=== PATIENT | female | born 1950 | race Caucasian/White ===

== ENCOUNTER 2018-10-10 09:55 | Day surgery (SDC) | payer MEDICARE, BC ==
[2018-10-08 11:51] VITALS: BMI 35.4
[~2018-10-10 09:55] MED LIST: LACTATED RINGERS 1,000 ML IV SCH; LIDOCAINE 1% 20 ML VIAL (10MG/ML) FOR IV START INTRADERMA PRN
[2018-10-10 10:27] VITALS: TEMP 99.1
[2018-10-10] MEDS ORDERED: PROPOFOL 10 MG/ML 20 ML VIAL IV ONE (11:26)
--- NOTE | 2018-10-10 11:28 | P.GSHP ---
History of Present Illness H&P Date: 10/10/18 Chief Complaint: Iron Deficiency anemia Patient today for upper and lower endoscopy. She has not had a colonoscopy before. Recently was being worked up and found to have a hemoglobin of 7.7. Iron studies show iron deficiency. Here for upper and lower endoscopy. Denies rectal bleeding. No melanotic stools. No abdominal pain. Past Medical History Past Medical History: GERD/Reflux, Hypertension, Osteoarthritis (OA), Renal Disease Additional Past Medical History / Comment(s): SHORT OF BREATH,ANEMIA, History of Any Multi-Drug Resistant Organisms: None Reported Past Surgical History: Appendectomy, Tonsillectomy Additional Past Surgical History / Comment(s): LEFT EYE SURGERY , DENTAL IMPLANTS Past Anesthesia/Blood Transfusion Reactions: No Reported Reaction Smoking Status: Current every day smoker - Past Family History Brother(s) Family Medical History: Cancer Additional Family Medical History / Comment(s): LUNG CANCER Medications and Allergies Home Medications Medication Instructions Recorded Confirmed Type Aspirin EC [Ecotrin] 325 mg PO DAILY 10/08/18 10/08/18 History Furosemide [Lasix] 20 mg PO DAILY 10/08/18 10/10/18 History Hydrochlorothiazide [Hydrodiuril] 25 mg PO DAILY PRN 10/08/18 10/10/18 History Iron 18 mg PO DAILY 10/08/18 10/08/18 History Losartan Potassium [Cozaar] 25 mg PO DAILY 10/08/18 10/10/18 History Multivitamins, Thera [Multivitamin 1 tab PO DAILY 10/08/18 10/08/18 History (formulary)] Omeprazole Magnesium [PriLOSEC OTC] 20 mg PO DAILY 10/08/18 10/10/18 History Allergies Allergy/AdvReac Type Severity Reaction Status Date / Time No Known Allergies Allergy Verified 10/10/18 10:14 Surgical - Exam Vital Signs Temp Pulse Resp BP Pulse Ox 99.1 F 80 16 135/63 95 10/10/18 10:17 10/10/18 10:17 10/10/18 10:17 10/10/18 10:17 10/10/18 10:17 Physical exam: General: Well-developed, well-nourished HEENT: Normocephalic, sclerae nonicteric Abdomen: Nontender, nondistended Extremities: No edema Neuro: Alert and oriented Assessment and Plan (1) Iron deficiency anemia Narrative/Plan: Will proceed with upper and lower endoscopy at this time. Current Visit: Yes Status: Acute Code(s): D50.9 - IRON DEFICIENCY ANEMIA, UNSPECIFIED SNOMED Code(s): 05863621
--- NOTE | 2018-10-10 11:45 | P.PCN ---
Date of Procedure: 10/10/18 Procedure(s) Performed: PREOPERATIVE DIAGNOSIS: Iron deficiency anemia POSTOPERATIVE DIAGNOSIS: Gastritis, poor colonic prep PROCEDURE: 1. EGD with biopsy 2. Attempted colonoscopy ANESTHESIA: MAC SURGEON: Vazquez Wellington M.D. SPECIMENS: Antrum ENDOSCOPIC PROCEDURE: The patient was on the endoscopy table in the left decubitus position. The Olympus gastroscope was inserted into the oropharynx and passed under direct visualization to the region of the third portion of the duodenum. From that point the scope was slowly withdrawn inspecting all surfaces carefully. There were no neoplastic inflammatory or polypoid lesions throughout the duodenum. The pylorus revealed inflammatory changes without ulc eration. The stomach was carefully inspected. There was mild gastritis present. A biopsy of the antrum took place to rule out H. pylori. Retroflexion revealed a normal hiatus. The esophagus was then carefully examined. There were no neoplastic inflammatory or polypoid lesions throughout the visualized esophagus. The patient was kept on the endoscopy table in the left decubitus position. The Olympus colonoscope was inserted into the anus and passed under direct visualization to the region of the descending colon. The patient's prep unfortunate was quite poor with both liquid and solid stool. I could not evaluate the mucosal surfaces sufficiently. The visualized descending sigmoid and rectum appeared normal. Digital rectal examination was normal. Unfortunately again given the patient's poor prep no definitive statements can be made regarding the possibility of colonic bleeding. The patient was taken to the recovery room in stable condition per anesthesia guidelines. RECOMMENDATIONS: Await biopsy results. Antiacid therapy. Will require reprep and reattempt at colonoscopy.
[2018-10-10 11:49] VITALS: RESP 18
[2018-10-10 12:21] VITALS: BP 148/67; PULSE 67
== END 2018-10-10 12:39 | disposition home or self-care (01) ==
LOC: ORWHC2ENDO 09:55
PROVIDERS: ATTEND Surgery
DX: D50.9 Iron deficiency anemia, unspecified (principal); K29.50 Unspecified chronic gastritis without bleeding; K21.9 Gastro-esophageal reflux disease without esophagitis; I10 Essential (primary) hypertension; M19.90 Unspecified osteoarthritis, unspecified site; F17.210 Nicotine dependence, cigarettes, uncomplicated; Z79.82 Long term (current) use of aspirin; Z79.899 Other long term (current) drug therapy; Z97.2 Presence of dental prosthetic device (complete) (partial)
CPT/HCPCS: 43239; 45378; 88305; 88342; J2704

== ENCOUNTER → 2018-10-15 | Outpatient (CLI) | payer MEDICARE, BC ==
[2018-10-15 17:07] LABS: Anisocytosis Slight; Basophils # (A) 0.1 k/uL (0-0.2); Basophils % (A) 1 %; Eosinophils # (A) 0.2 k/uL (0-0.7); Eosinophils % (A) 2 %; HCT 28.5 % (34.0-46.0); HGB 7.9 gm/dL (11.4-16.0); Hypochromasia Marked; Lymphocytes # (A) 2.4 k/uL (1.0-4.8); Lymphocytes % (A) 35 %; MCH 20.5 pg (25.0-35.0); MCHC 27.6 g/dL (31.0-37.0); MCV 74.3 fL (80.0-100.0); Mean Platelet Volume 7.5; Microcytosis Moderate; Monocytes # (A) 0.6 k/uL (0-1.0); Monocytes % (A) 9 %; Neutrophils # (A) 3.4 k/uL (1.3-7.7); Neutrophils % (A) 50 %; Platelet Count 328 k/uL (150-450); Poikilocytosis Slight; RBC 3.84 m/uL (3.80-5.40); RDW 19.7 % (11.5-15.5); WBC 6.9 k/uL (3.8-10.6)
== END | disposition home or self-care (01) ==
LOC: LABWHC1 15:51
PROVIDERS: ATTEND Internal Medicine Critical Care Medicine
DX: D64.9 Anemia, unspecified (principal)
CPT/HCPCS: 36415; 85025

== ENCOUNTER → 2018-11-14 | Outpatient (CLI) | payer MEDICARE, BC ==
[2018-11-14 13:50] LABS: Anisocytosis Slight; Basophils # (A) 0.1 k/uL (0-0.2); Basophils % (A) 1 %; Eosinophils # (A) 0.2 k/uL (0-0.7); Eosinophils % (A) 2 %; HCT 27.3 % (34.0-46.0); HGB 7.7 gm/dL (11.4-16.0); Hypochromasia Marked; Lymphocytes # (A) 2.1 k/uL (1.0-4.8); Lymphocytes % (A) 23 %; MCH 21.5 pg (25.0-35.0); MCHC 28.4 g/dL (31.0-37.0); MCV 75.7 fL (80.0-100.0); Microcytosis Moderate; Monocytes # (A) 0.4 k/uL (0-1.0); Monocytes % (A) 5 %; Neutrophils # (A) 6.1 k/uL (1.3-7.7); Neutrophils % (A) 68 %; Platelet Count 357 k/uL (150-450); Poikilocytosis Slight; RDW 19.6 % (11.5-15.5); WBC 9.1 k/uL (3.8-10.6)
[2018-11-14 13:52] LABS: Appearance,Urine Clear (Clear); Bacteria,Urine Rare /hpf; Bilirubin,Urine Negative (Negative); Blood,Urine Negative (Negative); Color,Urine Yellow; Glucose,Urine (UA) Negative (Negative); Ketones,Urine Negative (Negative); Leukocyte Esterase,Urine Negative (Negative); Mucus,Urine Rare /hpf; Nitrite,Urine Negative (Negative); Protein,Urine 1+ (Negative); RBC,Urine 1 /hpf (0-5); Specific Gravity,Urine 1.012 (1.001-1.035); Squamous Epithelial Cell,Urine <1 /hpf (0-4); Urobilinogen,Urine <2.0 mg/dL (<2.0); WBC,Urine 1 /hpf (0-5)
[2018-11-14 19:29] LABS: Protein, Total 5.9 g/dL (6.2-8.2)
[2018-11-14 19:33] LABS: African American GFR (CKD) 87.8 (60.0-200.0); BUN/Creat Ratio 16.25 Ratio (12.00-20.00); Non-African American GFR(CKD) 75.8 (60.0-200.0); Potassium 4.8 mmol/L (3.5-5.5)
[2018-11-15 12:46] LABS: Albumin 3.31 g/dL (3.80-4.90); Gamma Globulin 0.67 g/dL (0.70-1.50)
== END | disposition home or self-care (01) ==
LOC: LABWHC1 12:55
PROVIDERS: ATTEND Internal Medicine
DX: D64.9 Anemia, unspecified (principal); R53.1 Weakness; I10 Essential (primary) hypertension
CPT/HCPCS: 36415; 80048; 81001; 83519; 84165; 84443; 85025

== ENCOUNTER → 2018-12-17 | Outpatient (CLI) | payer MEDICARE, BC ==
[2018-12-17 07:44] LABS: Anisocytosis Marked; Basophils # (A) 0.1 k/uL (0-0.2); Basophils % (A) 2 %; Eosinophils # (A) 0.3 k/uL (0-0.7); Eosinophils % (A) 5 %; HCT 38.5 % (34.0-46.0); Hypochromasia Marked; Lymphocytes # (A) 1.9 k/uL (1.0-4.8); Lymphocytes % (A) 29 %; MCH 26.5 pg (25.0-35.0); MCHC 30.7 g/dL (31.0-37.0); Macrocytosis Slight; Mean Platelet Volume 7.1; Microcytosis Moderate; Monocytes # (A) 0.4 k/uL (0-1.0); Monocytes % (A) 6 %; Neutrophils # (A) 3.8 k/uL (1.3-7.7); Neutrophils % (A) 57 %; Platelet Count 351 k/uL (150-450); Poikilocytosis Slight; RBC 4.47 m/uL (3.80-5.40); WBC 6.7 k/uL (3.8-10.6)
[2018-12-17 07:45] LABS: HGB 11.8 gm/dL (11.4-16.0); MCV 86.2 fL (80.0-100.0); RDW 26.8 % (11.5-15.5)
[2018-12-17 08:27] LABS: Poikilocytosis (M) Present
[2018-12-17 08:28] LABS: Polychromasia Present
== END | disposition home or self-care (01) ==
LOC: LABWHC1 07:09
PROVIDERS: ATTEND Internal Medicine
DX: D50.9 Iron deficiency anemia, unspecified (principal)
CPT/HCPCS: 36415; 85025

== ENCOUNTER 2018-12-28 08:38 | Day surgery (SDC) | payer MEDICARE, BC ==
[2018-12-26 15:07] VITALS: BMI 35.0
[2018-12-28 09:00] VITALS: TEMP 98.2
[2018-12-28] MEDS ORDERED: PROPOFOL 10 MG/ML 20 ML VIAL IV ONE (09:11)
--- NOTE | 2018-12-28 09:14 | P.GSHP ---
History of Present Illness H&P Date: 12/28/18 Chief Complaint: Colon cancer screening Patient today for colonoscopy. She had attempts at colonoscopy in October of this year however her prep was poor. History of anemia. Gastritis found on EGD in October. No abdominal pain. No rectal bleeding or melena. Past Medical History Past Medical History: GERD/Reflux, Hypertension, Osteoarthritis (OA), Renal Disease Additional Past Medical History / Comment(s): SHORT OF BREATH,ANEMIA, History of Any Multi-Drug Resistant Organisms: None Reported Past Surgical History: Appendectomy, Tonsillectomy Additional Past Surgical History / Comment(s): LEFT EYE SURGERY , DENTAL IMPLANTS, COLONOSCOPY Past Anesthesia/Blood Transfusion Reactions: No Reported Reaction Smoking Status: Current every day smoker - Past Family History Brother(s) Family Medical History: Cancer Additional Family Medical History / Comment(s): LUNG CANCER Medications and Allergies Home Medications Medication Instructions Recorded Confirmed Type Aspirin EC [Ecotrin] 325 mg PO DAILY 10/08/18 12/26/18 History Furosemide [Lasix] 20 mg PO DAILY 10/08/18 12/26/18 History Hydrochlorothiazide [Hydrodiuril] 25 mg PO DAILY PRN 10/08/18 12/26/18 History Iron 18 mg PO DAILY 10/08/18 12/26/18 History Losartan Potassium [Cozaar] 25 mg PO DAILY 10/08/18 12/28/18 History Multivitamins, Thera [Multivitamin 1 tab PO DAILY 10/08/18 12/26/18 History (formulary)] Omeprazole Magnesium [PriLOSEC OTC] 20 mg PO DAILY 10/08/18 12/26/18 History Allergies Allergy/AdvReac Type Severity Reaction Status Date / Time No Known Allergies Allergy Verified 12/26/18 14:47 Surgical - Exam Vital Signs Temp Pulse Resp BP Pulse Ox 98.2 F 84 18 101/54 92 L 12/28/18 08:59 12/28/18 08:59 12/28/18 08:59 12/28/18 08:59 12/28/18 08:59 Physical exam: General: Well-developed, well-nourished HEENT: Normocephalic, sclerae nonicteric Abdomen: Nontender, nondistended Extremities: No edema Neuro: Alert and oriented Assessment and Plan (1) Colon cancer screening Narrative/Plan: Will proceed with colonoscopy at this time Current Visit: Yes Status: Acute Code(s): Z12.11 - ENCOUNTER FOR SCREENING FOR MALIGNANT NEOPLASM OF COLON SNOMED Code(s): 090557041
[2018-12-28 09:34] VITALS: RESP 16
--- NOTE | 2018-12-28 09:35 | P.PCN ---
Date of Procedure: 12/28/18 Procedure(s) Performed: PREOPERATIVE DIAGNOSIS: Colon cancer screening POSTOPERATIVE DIAGNOSIS: Tortuous colon, unable to reach proximal to the distal transverse colon PROCEDURE: Incomplete colonoscopy ANESTHESIA: MAC SURGEON: Vazquez Wellington M.D. SPECIMENS: none ENDOSCOPIC PROCEDURE: The patient was placed on the endoscopy table in the left decubitus position. The Olympus colonoscope was inserted into the anus and passed under direct visualization to the distal transverse colon. We were unable to advance the scope more proximal on that given tortuosity throughout the distal colon. Multiple attempts at position changes and abdominal wall pressure were unsuccessful. The scope was withdrawn. There were no abnormalities seen throughout the descending sigmoid and rectum. Digital rectal examination was normal. The patient was taken to the recovery room in stable condition per anesthesia guidelines. RECOMMENDATIONS: Will plan barium enema at this time.
[2018-12-28 09:52] VITALS: BP 112/63; PULSE 78
--- NOTE | 2018-12-28 15:55 | FL ---
EXAMINATION TYPE: FL barium enema DATE OF EXAM: 12/28/2018 COMPARISON: None HISTORY: Incomplete colonoscopy TECHNIQUE: Environmental Intern view fluoroscopy and plain films FINDINGS: 2 minutes 46 seconds fluoroscopy time. Images: 36 Environmental Intern view: There is air present through the transverse colon. No mass effect is evident. Single contrast technique was utilized. There is abundant redundancy of the descending colon. There i s redundancy also noted at the hepatic flexure. Contrast is refluxed through the colon to the termina l ileum. Fluoroscopic spot imaging is performed. Postevacuation is performed. Terminal ileum is identified during the overhead radiograph phase of the study. No persistent annular lesions or circumferential narrowing are evident. On overhead radiographs there is a filling defect within the cecum. This does not appear to correlate with the terminal ileum or ileocecal valve. A polyp at this level cannot be excluded. IMPRESSION: 1. Redundant colon especially through the descending colon region but also present at the hepatic fl exure. 2. Small filling defect such as polyp within the cecum should be considered.
== END 2018-12-28 10:35 | disposition home or self-care (01) ==
LOC: ORWHC2ENDO 08:38
PROVIDERS: ATTEND Surgery
DX: Z12.11 Encounter for screening for malignant neoplasm of colon (principal); F17.200 Nicotine dependence, unspecified, uncomplicated; I10 Essential (primary) hypertension; K21.9 Gastro-esophageal reflux disease without esophagitis; M19.90 Unspecified osteoarthritis, unspecified site; Q43.8 Other specified congenital malformations of intestine; Z79.82 Long term (current) use of aspirin; Z80.1 Family history of malignant neoplasm of trachea, bronchus and lung; Z79.899 Other long term (current) drug therapy
CPT/HCPCS: 74270; 45330; J2704

== ENCOUNTER → 2019-09-11 | Outpatient (CLI) | payer MEDICARE, BC ==
[2019-09-11 14:58] LABS: Protein/Creatinine Ratio,Urine 0.381
[2019-09-12 00:22] LABS: African American GFR (CKD) 87.2 (60.0-200.0); Albumin 4.5 g/dL (3.80-4.90); Albumin/Globulin Ratio 2.05 (1.60-3.17); Anion Gap 10.3 mmol/L (4.00-12.00); BUN/Creat Ratio 17.5 Ratio (12.00-20.00); Calcium 9.8 mg/dL (8.7-10.3); Carbon Dioxide 23.7 mmol/L (21.6-31.8); Chol/HDL Ratio 6.49; Globulin 2.2 g/dL (1.6-3.3); LDL Cholesterol,Calculated 197.8 mg/dL (0.0-131.0); Non-African American GFR(CKD) 75.2 (60.0-200.0); Potassium 4.5 mmol/L (3.5-5.5); Total Bilirubin 0.5 mg/dL (0.2-1.2); Total Protein 6.7 g/dL (6.2-8.2); VLDL Calculation 49.2 mg/dL (5.00-40.00)
== END | disposition home or self-care (01) ==
LOC: LABWHC1 14:09
PROVIDERS: ATTEND Internal Medicine Nephrology
DX: N18.1 Chronic kidney disease, stage 1 (principal); R80.9 Proteinuria, unspecified; E55.9 Vitamin D deficiency, unspecified; E78.5 Hyperlipidemia, unspecified; N25.81 Secondary hyperparathyroidism of renal origin
CPT/HCPCS: 36415; 80053; 80061; 82570; 83970; 84156

== ENCOUNTER → 2019-09-20 | Outpatient (CLI) | payer MEDICARE, BC ==
[2019-09-20 14:25] LABS: Anisocytosis Slight; HCT 41.7 % (34.0-46.0); HGB 13.5 gm/dL (11.4-16.0); Hypochromasia Slight; MCHC 32.4 g/dL (31.0-37.0); MCV 92.7 fL (80.0-100.0); Mean Platelet Volume 8.9; Platelet Count 230 k/uL (150-450); RDW 18.7 % (11.5-15.5); Reticulocyte % 2.7 % (0.5-2.0); WBC 7.8 k/uL (3.8-10.6)
[2019-09-21 00:04] LABS: % Iron Saturation 20.39 (12.00-45.00)
[2019-09-21 00:14] LABS: Ferritin 52.8 ng/mL (10.0-291.0); Folate, Serum 9.6 ng/mL
== END | disposition home or self-care (01) ==
LOC: LABWHC1 13:29
PROVIDERS: ATTEND Internal Medicine
DX: D50.9 Iron deficiency anemia, unspecified (principal)
CPT/HCPCS: 36415; 82607; 82728; 82746; 83540; 83550; 85027; 85045

== ENCOUNTER → 2022-06-30 | Outpatient (CLI) | payer MEDICARE, BC ==
[2022-06-30 12:46] LABS: Creatinine,Urine Random 69.3 mg/dL; Protein/Creatinine Ratio,Urine 1.126
[2022-06-30 18:43] LABS: Basophils # (A) 0.13 X 10*3/uL (0.00-0.10); Basophils % (A) 1.8 %; Eosinophils % (A) 2.7 %; HCT 36.9 % (37.2-46.3); HGB 11.6 g/dL (12.0-15.0); Immature Grans, Automated 0.3 %; Lymphocytes # (A) 2.75 X 10*3/uL (0.90-5.00); Lymphocytes % (A) 37.4 %; MCH 28.8 pg (27.0-32.0); MCHC 31.4 g/dL (32.0-37.0); MCV 91.6 fL (80.0-97.0); Mean Platelet Volume 11.5 fL (9.5-12.2); Monocytes # (A) 0.71 X 10*3/uL (0.20-1.00); Monocytes % (A) 9.7 %; NRBC Per 100 WBC 0 /100 WBCS (0.0-0.0); Neutrophils # (A) 3.54 X 10*3/uL (1.80-7.70); Neutrophils % (A) 48.1 %; Platelet Count 273 X 10*3/uL (140-440); RBC 4.03 X 10*6/uL (4.10-5.20); RDW 14.6 % (11.5-14.5); WBC 7.35 X 10*3/uL (4.50-10.00)
[2022-06-30 19:02] LABS: Appearance,Urine Clear (Clear); Bilirubin,Urine Negative (Negative); Blood,Urine Negative (Negative); Color,Urine Yellow (Yellow); Ketones,Urine Negative (Negative); Nitrite,Urine Negative (Negative); PH, Urine 6.5 (5.0-8.0); Specific Gravity,Urine 1.013 (1.001-1.030); Urobilinogen,Urine 0.2 (0.2,1.0)
[2022-06-30 19:10] LABS: Bacteria,Urine None Seen /HPF (None Seen)
[2022-06-30 19:25] LABS: Albumin 4.6 g/dL (3.8-4.9); Albumin/Globulin Ratio 1.7 (1.60-3.17); Anion Gap 13.8 mmol/L (10.00-18.00); BUN/Creat Ratio 22.57 Ratio (12.00-20.00); Blood Urea Nitrogen 15.8 mg/dL (9.0-27.0); Carbon Dioxide 23.2 mmol/L (20.0-27.5); Globulin 2.7 g/dL (1.6-3.3); Non-African American GFR(CKD) 87.2 (60.0-200.0); Potassium 4.1 mmol/L (3.5-5.5); Total Bilirubin 0.2 mg/dL (0.30-1.20); Total Protein 7.3 g/dL (6.2-8.2)
== END | disposition home or self-care (01) ==
LOC: LABWHC1 11:36
PROVIDERS: ATTEND Nurse Practitioner Family
DX: N18.1 Chronic kidney disease, stage 1 (principal); E55.9 Vitamin D deficiency, unspecified; N39.0 Urinary tract infection, site not specified; R80.9 Proteinuria, unspecified
CPT/HCPCS: 36415; 80053; 81001; 82306; 82570; 84156; 85025